=== PATIENT | male | born 1955 | race African-American/Black ===

== ENCOUNTER 2017-03-08 09:31 | Observation (INO) | payer MEDICAID, MEDICARE ==
[~2017-03-08] VITALS: Ht 172.7 cm; Wt 108.9 kg
[2017-03-08] MEDS ORDERED: SODIUM CHLORIDE 0.9% 250 ML IV ONE (10:38)
[2017-03-08] MEDS ORDERED: NALBUPHINE HCL 10 MG/1ml INJECTION IV ONE (10:45)
[2017-03-08] MEDS ORDERED: METOCLOPRAMIDE HCL 5MG/ml INJ 2ml VIAL IV ONE (10:45)
[2017-03-08 10:49] LABS: Basophils # (auto) 0 uL; Basophils % (auto) 0.5 % (0.0-2.0); Eosinophils # (auto) 0.2 uL; Eosinophils % (auto) 2.5 % (0.0-7.0); Hematocrit 37.4 % (41.0-53.0); Hemoglobin 12.6 g/dL (13.5-17.5); Lymphocytes # (auto) 1.7 uL; Lymphocytes % (auto) 25.1 % (10.0-50.0); Mean Corpuscular Hgb Conc. 33.5 g/dL (32.0-36.0); Mean Corpuscular Volume 92.3 fL (80.0-100.0); Mean Platelet Volume 6.7 fL (7.4-10.4); Monocytes # (auto) 0.5 uL; Monocytes % (auto) 7.2 % (0.0-12.0); Neutrophils # (auto) 4.4 uL; Neutrophils % (auto) 64.7 % (37.0-80.0); Platelet Count (auto) 291 10^3/uL (140-450); White Blood Cell 6.8 10^3/uL (4.4-10.8)
[2017-03-08 11:05] LABS: BUN/Creatinine Ratio 14.9; Calcium 7.9 mg/dL (8.5-10.1); Potassium 3.5 mmol/L (3.5-5.1)
[2017-03-08 11:07] LABS: Bilirubin, Total 0.4 mg/dL (0.2-1.0); Total Protein 8.2 g/dL (6.4-8.2)
[2017-03-08 11:15] LABS: Magnesium 2.2 mg/dL (1.6-2.6)
[2017-03-08 11:50] LABS: B-Type Natriuretic Peptide 32.3 pg/mL (0-100)
[2017-03-08] MEDS ORDERED: GABA300C8 PO (11:56)
[2017-03-08] MEDS ORDERED: OXY20CRT PO (11:56)
[2017-03-08] MEDS ORDERED: NIF10C PO (11:56)
[2017-03-08] MEDS ORDERED: CARI-277 PO (11:58)
[2017-03-08] MEDS ORDERED: LISI40TA PO (11:58)
[2017-03-08] MEDS ORDERED: LEVO88TA36 PO (11:59)
[2017-03-08] MEDS ORDERED: CLOP75TA28 PO (11:59)
[2017-03-08] MEDS ORDERED: VILA20TA PO (11:59)
[2017-03-08] MEDS ORDERED: HYDR-2650 PO (12:01)
[2017-03-08] MEDS ORDERED: LINA145C PO (12:01)
[2017-03-08] MEDS ORDERED: ATOR40TA52 PO (12:01)
[2017-03-08] MEDS ORDERED: WARF5TAB71 PO (12:01)
[2017-03-08] MEDS ORDERED: OMEP20CA5 PO (12:02)
[2017-03-08] MEDS ORDERED: DOCU100T15 PO (12:02)
[2017-03-08] MEDS ORDERED: FOLI1TAB6 PO (12:02)
[2017-03-08 12:31] LABS: Temperature: 22.2 C (20.0-25.0)
[2017-03-08 12:42] LABS: Urine Bilirubin Negative (Negative); Urine Blood Negative /uL (Negative); Urine Color Yellow (Yellow); Urine Glucose Normal (Normal); Urine Ketone Negative (Negative); Urine Nitrite Negative (Negative); Urine RBC 2 /hpf (0 - 3); Urine Squamous Epithelial Cell FEW /hpf (<5); Urine Urobilinogen Normal (Negative)
[2017-03-08] MEDS ORDERED: LABETALOL HCL 5 MG/ML 4ML SYRINGE IV ONE (12:45)
[2017-03-08 13:41] VITALS: BP 142/64
== END 2017-03-08 15:32 | disposition home or self-care (01) | DRG 74 ==
LOC: ER 09:54 → OVERFLOW 10:40 → ER 15:32
PROVIDERS: ADMIT Emergency Medicine; ATTEND Emergency Medicine
DX: E11.42 Type 2 diabetes mellitus with diabetic polyneuropathy (principal); I10 Essential (primary) hypertension; Z86.73 Personal history of transient ischemic attack (TIA), and cerebral infarction without residual deficits; E03.9 Hypothyroidism, unspecified; R53.1 Weakness; K21.9 Gastro-esophageal reflux disease without esophagitis
CPT/HCPCS: 36415; 71010; 80053; 81001; 83735; 83880; 84443; 84484; 85025; 93005; 96361; 96374; 96375; 99285; G0378; J2300; J2765; J3490